=== PATIENT | male | born 1975 | race Caucasian/White ===

== ENCOUNTER 2023-01-28 17:08 | Emergency (ER) | payer MEDICAID ==
[~2023-01-28] VITALS: Ht 170.2 cm; Wt 79.4 kg
[2023-01-28 17:42] VITALS: BP_SYST 149; PULSE 83; RESP 20; TEMP 98.9; O2SAT 99
== END 2023-01-28 18:23 | disposition left against medical advice (07) ==
LOC: EDBD → SED 17:08
DX: R51.9 Headache, unspecified (principal); R53.1 Weakness; Z53.21 Procedure and treatment not carried out due to patient leaving prior to being seen by health care provider
CPT/HCPCS: 99281

== ENCOUNTER 2023-01-29 06:56 | Emergency (ER) | payer MEDICAID ==
[~2023-01-29] VITALS: Ht 172.7 cm; Wt 95.3 kg
[2023-01-29 07:07] VITALS: BP_SYST 132; PULSE 82; RESP 16; TEMP 97.9; O2SAT 99
[2023-01-29] MEDS ORDERED: ACETAMINOPHEN 500 MG TABLET PO ONE (07:45)
[2023-01-30] MEDS ORDERED: IBUP-1969 PO (07:13)
[2023-01-30] MEDS ORDERED: MECL-261 PO (07:13)
== END 2023-01-29 08:40 | disposition left against medical advice (07) ==
LOC: SED 06:56
DX: S01.01XA Laceration without foreign body of scalp, initial encounter (principal); Z79.899 Other long term (current) drug therapy; Y04.0XXA Assault by unarmed brawl or fight, initial encounter; Y93.89 Activity, other specified; Y92.89 Other specified places as the place of occurrence of the external cause; Y99.8 Other external cause status
CPT/HCPCS: 70450-TC; 72125-TC; 76376; 99284

== ENCOUNTER 2023-01-30 06:43 | Emergency (ER) | payer MEDICAID ==
[~2023-01-30] VITALS: Ht 172.7 cm; Wt 77.1 kg
[2023-01-30 06:51] VITALS: BP_SYST 140; PULSE 79; RESP 19; TEMP 97.9; O2SAT 98
[2023-01-30] MEDS ORDERED: MECL-261 PO (07:13)
[2023-01-30] MEDS ORDERED: IBUP-1969 PO (07:13)
[2023-01-30] MEDS ORDERED: KETOROLAC TROMETHAMINE 60 MG/2 ML VIAL IM ONE (07:15)
[2023-01-30 07:33] VITALS: BP_SYST 135; PULSE 66; RESP 16; TEMP 97.8; O2SAT 99
== END 2023-01-30 07:40 | disposition home or self-care (01) ==
LOC: SED 06:43
DX: R51.9 Headache, unspecified (principal); R42 Dizziness and giddiness; Z79.899 Other long term (current) drug therapy
CPT/HCPCS: 99283; 96372; J1885

== ENCOUNTER 2023-02-03 13:24 | Emergency (ER) | payer MEDICAID ==
[~2023-02-03] VITALS: Ht 172.7 cm; Wt 90.7 kg
[~2023-02-03 13:24] MED LIST: IBUP-1969 PO; MECL-261 PO
[2023-02-03 13:59] VITALS: BP_SYST 131; PULSE 88; RESP 18; TEMP 97.6; O2SAT 98
== END 2023-02-03 19:00 | disposition left against medical advice (07) ==
LOC: SED 13:24
DX: Z48.02 Encounter for removal of sutures (principal); Z53.21 Procedure and treatment not carried out due to patient leaving prior to being seen by health care provider
CPT/HCPCS: 99281